=== PATIENT | male | born 1970 | race Caucasian/White ===

== ENCOUNTER 2017-06-25 09:50 | Outpatient (CLI) | payer OTHER ==
--- NOTE | 2017-06-25 12:58 | XRAY Report ---
DATE OF SERVICE: 06/25/2017 THREE VIEW RIGHT SHOULDER: 06/25/2017 CLINICAL INDICATION: Pain after fall. FINDINGS: AP, oblique, and scapular Y views of the right shoulder demonstrate no evidence of fracture or dislocation. The joint spaces are preserved. No radiopaque foreign body is seen in the soft tissues. IMPRESSION: NORMAL RIGHT SHOULDER. TD: 06/25/2017 13:57
== END 2017-06-25 09:51 | disposition home or self-care (01) ==
LOC: DI 09:50
PROVIDERS: ATTEND Family Medicine
DX: M25.511 Pain in right shoulder (principal)

== ENCOUNTER 2017-07-19 07:41 | Outpatient (CLI) | payer OTHER ==
--- NOTE | 2017-07-19 16:28 | MRI Preliminary Report ---
Exam: MRI SHOULDER RT W/O IMPRESSION: 1. Mild supraspinatus tendinopathy with shallow bursal surface fraying and subtle shallow partial-thi ckness intrasubstance tear at the central to posterior fibers. 2. Mild infraspinatus and subscapularis tendinopathy. 3. Degenerative fraying of the labrum with small partial-thickness undersurface tear posterior superi or aspect. 4. Mild subacromial subdeltoid bursitis. 5. Minimal acromioclavicular and glenohumeral degenerative change. 6. Mild anterior and lateral downsloping of the acromion. This may contribute to symptoms of impingem ent. [facility]CULOSKE[facility]IOLOGY SECTION SITE ID: [id number]
--- NOTE | 2017-07-19 19:31 | MRI Report ---
EXAM: RIGHT SHOULDER MRI WITHOUT CONTRAST EXAM DATE: 07/19/2017 08:36 AM. CLINICAL HISTORY: Right shoulder pain x 6 weeks. COMPARISON: Radiographs 06/25/2017. TECHNIQUE: Multiplanar, multisequence T1-weighted and fluid-sensitive sequences of the shoulder witho ut contrast. Other: None. FINDINGS: Acromioclavicular Region: The acromion is type II with mild anterior and lateral downsloping. Minimal degenerative change at the joint. The coracoacromial and coracoclavicular ligaments are intact. Mild subacromial/subdeltoid bursal fluid. Glenohumeral Region: No subluxation. Minimal joint effusion. Shallow partial-thickness cartilage loss at the humeral head. Deep partial-thickness loss at the central to inferior glenoid. The glenohumera l ligaments and joint capsule are unremarkable. Bone Marrow: No fracture or bone lesion. Reactive edema and cyst at the greater tuberosity. Labrum: Degenerative fraying and small partial-thickness undersurface tear at the posterior-superior labrum. Degenerative fraying at the anterior-inferior labrum. Musculature/Rotator Cuff: Mild supraspinatus tendinopathy with shallow bursal surface fraying. Subtle partial-thickness intrasubstance tear at the insertion of the central to posterior fibers. Subtle de laminating component extends to the myotendinous junction. Mild infraspinatus tendinopathy with shallow bursal surface fraying. Teres minor tendon is intact. Mild subscapularis tendinopathy. No edema or fatty atrophy. Biceps Tendon: The long head of the biceps tendon and biceps lucy are intact. Other: The subcutaneous tissues are unremarkable. IMPRESSION: 1. Mild supraspinatus tendinopathy with shallow bursal surface fraying and a subtle shallow partial-t hickness intrasubstance tear at the central to posterior fibers. 2. Mild infraspinatus and subscapularis tendinopathy. 3. Degenerative fraying of the labrum with a small partial-thickness undersurface tear at the posteri or-superior aspect. 4. Mild subacromial subdeltoid bursitis. 5. Minimal acromioclavicular and glenohumeral degenerative change. 6. Mild anterior and lateral downsloping of the acromion. This may contribute to symptoms of impingem ent. [facility]CULOSKE[facility] RADIOLOGY SECTION Referring Provider Line: [phone] SITE ID: [id number]
== END 2017-07-19 07:42 | disposition home or self-care (01) ==
LOC: DI 07:41
PROVIDERS: ATTEND Family Medicine
DX: M75.101 Unspecified rotator cuff tear or rupture of right shoulder, not specified as traumatic (principal); S43.491A Other sprain of right shoulder joint, initial encounter; M75.51 Bursitis of right shoulder; M19.011 Primary osteoarthritis, right shoulder; M75.91 Shoulder lesion, unspecified, right shoulder

== ENCOUNTER 2021-06-19 09:00 | Day surgery (SDC) | payer OTHER ==
[~2021-06-19 09:00] MED LIST: LACTATED RINGERS 1,000 ML IV ONE
--- NOTE | 2021-06-19 10:01 | ANESTHESIA ---
Pre-Anesthesia VS, & Labs - Diagnosis dysphagia, screening - Procedure EGD, Colonoscopy Vital Signs: Temp Pulse Resp BP Pulse Ox 36.2 C L 78 14 131/98 H 97 06/19/21 09:16 06/19/21 09:16 06/19/21 09:16 06/19/21 09:16 06/19/21 09:16 Height: 6 ft 1 in Weight (kg): 122.2 kg Body Mass Index: 35.5 BMI Classification: Obese - NPO >8 hours - Lab Results Lab results reviewed: Yes Home Medications and Allergies Home Medications: Ambulatory Orders Amlodipine Besylate [Norvasc] 5 mg PO DAILY 06/19/21 Atorvastatin [Lipitor] 20 mg PO DAILY 06/19/21 Lisinopril [Zestril] 40 mg PO DAILY 06/19/21 Rivaroxaban [Xarelto] 20 mg PO DAILY 06/19/21 Zolpidem Tartrate [Ambien] 10 mg PO DAILY 06/19/21 Amlodipine Besylate [Norvasc] 5 mg PO DAILY 06/19/21 Atorvastatin [Lipitor] 20 mg PO DAILY 06/19/21 Lisinopril [Zestril] 40 mg PO DAILY 06/19/21 Rivaroxaban [Xarelto] 20 mg PO DAILY 06/19/21 Zolpidem Tartrate [Ambien] 10 mg PO DAILY 06/19/21 Allergies/Adverse Reactions: Allergies Allergy/AdvReac Type Severity Reaction Status Date / Time No Known Drug Allergies Allergy Verified 06/19/21 09:31 Anes History & Medical History - Anesthetic History Anesthesia Complications: reports: No previous complications Family history of Anesthesia Complications: Denies Family history of Malignant Hyperthermia: Denies - Medical History Cardiovascular: reports: Hypertension, High cholesterol, Deep vein thrombosis, Pulmonary embolism Pulmonary: reports: None Gastrointestinal: reports: Hiatal hernia Urinary: reports: Kidney stones, Other Musculoskeletal: reports: Osteoarthritis Endocrine/Autoimmune: reports: None Skin: reports: Eczema - Surgical History Orthopedic: reports: Hip replacement, Other Exam General: Alert, Oriented x3, Cooperative, No acute distress Dental: WNL Mouth Openin Fingerbreadth Neck Mobility: Normal Mallampati classification: I Plan Anesthesia Type: General, Total IV Consent for Procedure(s) Verified and Reviewed: Yes Code Status: Attempt Resuscitation ASA classification: 2-Mild systemic disease Is this case an emergency?: No
[2021-06-19] MEDS ORDERED: LIDOCAINE-MPF 2% 5 ML VIAL ONE (10:29)
[2021-06-19] MEDS ORDERED: PROPOFOL 500 MG/50 ML 500 MG/50 ML VIAL ONE (10:31)
[2021-06-19] MEDS ORDERED: PROPOFOL 200 MG/20 ML VIAL IVP ONE (11:02)
[2021-06-19] MEDS ORDERED: LACTATED RINGERS 1,000 ML IV ONE (11:13)
[2021-06-19 11:32] VITALS: BP 122/87
--- NOTE | 2021-06-19 14:36 | ANESTHESIA POST OP EVALUATION ---
Anesthesia Post Eval - Post Anesthesia Eval Vitals: Last Vital Signs Temp 36.2 C L 06/19/21 11:29 Pulse 65 06/19/21 11:29 Resp 15 06/19/21 11:29 BP 122/87 H 06/19/21 11:29 Pulse Ox 98 06/19/21 11:29 CV Function Including HR & BP: Stable Pain Control: Satisfactory Nausea & Vomiting: Negative Mental Status: Baseline Respiratory Status: Airway Patent Hydration Status: Satisfactory Anesthesia Complications: None
== END 2021-06-19 09:01 | disposition home or self-care (01) ==
LOC: SDS 09:00
PROVIDERS: ATTEND Surgery
PROC: 0DB58ZX Excision of Esophagus, Via Natural or Artificial Opening Endoscopic, Diagnostic (ICD-10-PCS; 2021-06-19)
PROC: 0DB48ZX Excision of Esophagogastric Junction, Via Natural or Artificial Opening Endoscopic, Diagnostic (ICD-10-PCS; 2021-06-19)
PROC: 0DBN8ZX Excision of Sigmoid Colon, Via Natural or Artificial Opening Endoscopic, Diagnostic (ICD-10-PCS; 2021-06-19)
PROC: 0DB98ZX Excision of Duodenum, Via Natural or Artificial Opening Endoscopic, Diagnostic (ICD-10-PCS; principal; 2021-06-19 10:00)
PROC: 0DB68ZX Excision of Stomach, Via Natural or Artificial Opening Endoscopic, Diagnostic (ICD-10-PCS; 2021-06-19 10:00)
DX: Z12.11 Encounter for screening for malignant neoplasm of colon (principal); K21.9 Gastro-esophageal reflux disease without esophagitis; R13.10 Dysphagia, unspecified; K29.70 Gastritis, unspecified, without bleeding; K44.9 Diaphragmatic hernia without obstruction or gangrene; K57.30 Diverticulosis of large intestine without perforation or abscess without bleeding; K63.5 Polyp of colon; K64.4 Residual hemorrhoidal skin tags; K64.8 Other hemorrhoids; I10 Essential (primary) hypertension; E66.9 Obesity, unspecified; Z68.35 Body mass index [BMI] 35.0-35.9, adult; Z79.01 Long term (current) use of anticoagulants; Z79.899 Other long term (current) drug therapy; Z86.711 Personal history of pulmonary embolism; Z86.718 Personal history of other venous thrombosis and embolism; Z87.19 Personal history of other diseases of the digestive system
CPT/HCPCS: 43239; 45380; J7120

== ENCOUNTER 2023-05-05 13:00 | Outpatient (CLI) | payer OTHER ==
[2023-05-05 13:11] LABS: BASOPHILS % (AUTO) 0.6 %; EOSINOPHILS # (AUTO) 0.1 10^3/uL (0.0-0.7); EOSINOPHILS % (AUTO) 1.1 %; HCT - HEMATOCRIT 36.9 % (42.0-52.0); HGB - HEMOGLOBIN 10.8 g/dL (14.0-18.0); LYMPHOCYTES # (AUTO) 1.7 10^3/uL (1.5-3.5); LYMPHOCYTES % (AUTO) 36.2 %; MEAN CORPUSCULAR HEMOGLOBIN 24.8 pg (27.0-31.0); MEAN CORPUSCULAR HGB CONC 29.3 g/dL (32.0-36.0); MEAN CORPUSCULAR VOLUME 84.8 fL (80.0-94.0); MEAN PLATELET VOLUME 8.7 fL (7.4-11.4); MONOCYTES # (AUTO) 0.3 10^3/uL (0.0-1.0); MONOCYTES % (AUTO) 6.6 %; NEUTROPHILS # (AUTO) 2.6 10^3/uL (1.5-6.6); NEUTROPHILS % (AUTO) 55.5 %; PLT - PLATELET COUNT 264 10^3/uL (130-450); RED BLOOD COUNT 4.35 10^6/uL (4.70-6.10); RED CELL DISTRIBUTION WIDTH 17.4 % (12.0-15.0); WHITE BLOOD COUNT 4.7 x10^3/uL (4.8-10.8)
[2023-05-05 13:30] LABS: % IRON SATURATION 7 % (20-50); IRON 27 ug/dL (50-212); TOTAL IRON BINDING CAPACITY 375 ug/dL (250-450); TRANSFERRIN 268 mg/dL (203-362)
== END 2023-05-05 13:01 | disposition home or self-care (01) ==
LOC: LAB 13:00
PROVIDERS: ATTEND Surgery
DX: D50.9 Iron deficiency anemia, unspecified (principal)
CPT/HCPCS: 36415; 83540; 84466; 85025

== ENCOUNTER 2023-06-16 09:16 | Day surgery (SDC) | payer OTHER ==
[2023-06-16] MEDS ORDERED: LACTATED RINGERS 1,000 ML IV ONE (09:47)
[2023-06-16 09:51] VITALS: O2SAT 100
[2023-06-16] MEDS ORDERED: PROPOFOL 500 MG/50 ML 500 MG/50 ML VIAL ONE (10:45)
--- NOTE | 2023-06-16 10:45 | ANESTHESIA ---
Pre-Anesthesia VS, & Labs - Diagnosis anemia, screening - Procedure EGD, colonoscopy Vital Signs: Temp Pulse Resp BP Pulse Ox O2 Flow Rate 36.0 C L 65 14 143/100 H 100 06/16/23 09:40 06/16/23 09:40 06/16/23 09:40 06/16/23 09:40 06/16/23 09:40 Height: 6 ft 1 in Weight (kg): 121.7 kg Body Mass Index: 35.4 BMI Classification: Obese - NPO Other (prep as directed) Home Medications and Allergies Home Medications: Ambulatory Orders Metoprolol Succinate [Toprol Xl] 1 tab PO BID 06/13/23 Omeprazole Magnesium [Prilosec] 10 mg PO DAILY 06/13/23 Amlodipine Besylate [Norvasc] 5 mg PO BID 06/19/21 Atorvastatin [Lipitor] 20 mg PO DAILY 06/19/21 Lisinopril [Zestril] 40 mg PO DAILY 06/19/21 Rivaroxaban [Xarelto] 20 mg PO DAILY 06/19/21 Zolpidem Tartrate [Ambien] 10 mg PO DAILY PRN 06/19/21 Metoprolol Succinate [Toprol Xl] 1 tab PO BID 06/13/23 Omeprazole Magnesium [Prilosec] 10 mg PO DAILY 06/13/23 Allergies/Adverse Reactions: Allergies Allergy/AdvReac Type Severity Reaction Status Date / Time No Known Drug Allergies Allergy Verified 06/13/23 13:25 Anes History & Medical History - Anesthetic History Anesthesia Complications: reports: No previous complications - Medical History Cardiovascular: reports: Hypertension, High cholesterol, Pulmonary embolism, Atrial fibrillation Pulmonary: reports: Other Gastrointestinal: reports: GERD, Hiatal hernia, Hemorrhoids, Other Urinary: reports: Kidney stones, Other Musculoskeletal: reports: Chronic back pain, Other Endocrine/Autoimmune: reports: None Skin: reports: Psoriasis - Surgical History Orthopedic: reports: Hip replacement, Other Exam General: Alert, Oriented x3 Mouth Opening: Greater than 4 Fingerbreadths Neck Mobility: Normal Mallampati classification: I Thyromental Distance: greater than 6 cm Respiratory: Lungs clear Cardiovascular: Regular rate Plan Anesthesia Type: Total IV Consent for Procedure(s) Verified and Reviewed: Yes Code Status: Attempt Resuscitation ASA classification: 3-Severe systemic disease Is this case an emergency?: No
[2023-06-16] MEDS ORDERED: MIDAZOLAM 2 MG/2 ML VIAL ONE (11:12)
[2023-06-16] MEDS ORDERED: LACTATED RINGERS 700 ML IV ONE ×2 (11:56)
[2023-06-16 12:18] VITALS: BP 93/53
--- NOTE | 2023-06-16 12:31 | ANESTHESIA POST OP EVALUATION ---
Anesthesia Post Eval - Post Anesthesia Eval Vitals: Last Vital Signs Temp 36.1 C L 06/16/23 11:56 Pulse 59 L 06/16/23 12:05 Resp 16 06/16/23 12:05 BP 93/53 L 06/16/23 12:05 Pulse Ox 100 06/16/23 12:05 O2 Flow Rate CV Function Including HR & BP: Stable Pain Control: Satisfactory Nausea & Vomiting: Negative Mental Status: Baseline Respiratory Status: Airway Patent Hydration Status: Satisfactory Anesthesia Complications: None
== END 2023-06-16 09:17 | disposition home or self-care (01) ==
LOC: SDS 09:16
PROVIDERS: ATTEND Surgery
PROC: 0DBN8ZZ Excision of Sigmoid Colon, Via Natural or Artificial Opening Endoscopic (ICD-10-PCS; principal; 2023-06-16 10:30)
PROC: 0DJ08ZZ Inspection of Upper Intestinal Tract, Via Natural or Artificial Opening Endoscopic (ICD-10-PCS; 2023-06-16 10:30)
DX: D50.9 Iron deficiency anemia, unspecified (principal); R19.5 Other fecal abnormalities; D12.5 Benign neoplasm of sigmoid colon; K57.30 Diverticulosis of large intestine without perforation or abscess without bleeding; K64.2 Third degree hemorrhoids; K44.9 Diaphragmatic hernia without obstruction or gangrene; K21.9 Gastro-esophageal reflux disease without esophagitis; I10 Essential (primary) hypertension; I48.91 Unspecified atrial fibrillation; E66.9 Obesity, unspecified; Z68.35 Body mass index [BMI] 35.0-35.9, adult
CPT/HCPCS: 43235; 45385; J7120

== ENCOUNTER 2023-07-15 10:02 | Outpatient (CLI) | payer OTHER ==
--- NOTE | 2023-07-15 10:53 | Sleep Patient Instructions ---
Sleep Center Visit Summary - Patient Visit Information Reason for Visit: Initial consult for evaluation of sleep disordered breathing and other sleep issues. - Patient Instructions Instructions Attached: Sleep Study Additional Instructions: You will be completing a sleep study, either an in-lab polysomnography (PSG) or home sleep study (HST). You will follow-up in the sleep care office after the sleep study is completed to hear the results and talk about therapy, if needed. You will be called by our office staff to schedule this appointment, but you may contact us with any questions. - Clinic Information Contact: [facility] [address] [place] [address] [email or web address] T: [phone]
--- NOTE | 2023-07-15 11:00 | SLEEP CARE CONSULTATION ---
Information from patient questionnaire entered by Julieta Ahmadi. I have reviewed and concur with the information entered by Julieta Ahmadi. This document represents the service I personally performed and the decisions made by me, Nyasia Lino ARNP. History of Present Illness Service Date and Time: 07/15/2023 1002 Reason for Visit: New patient Chief Complaint: reports: Other (Atrial fibrillation/syncope) Date of Onset: 04/27/23 Usual bedtime: 11 PM Time it takes to fall asleep: 1-2 hours Snores at night: Yes Observed to quit breathing while asleep: No Sleeps alone due to snoring: No Number of times waking at night: 1-2 Reasons for waking at night: reports: Bathroom. denies: Choking, Gasping for air Toss, Turn, or Twitch while sleeping: No Recalls having dreams: Yes Usually gets out of bed at: 8-9 Feels refreshed in the morning: No Morning headache: No Sleepy or fatigued during the day: No (as long has he does not slow down) Ever fallen asleep while driving: No Takes day naps: No Dreams during day naps: No Prior sleep studies: No Additional HPI information: I had the pleasure of seeing KEREN RIBERA today regarding the possibility of him having a sleep disorder. His current complaint today is history of atrial fibrillation/syncope. 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 He says he was found to atrial fibrillation and passed out when being discharged but they felt it was a vasovagal syncope. He is getting an ablation for the AFib on July 28. He has to have a sleep study to re-qualify his flight status. He has been told that he snores but is not real loud according to his significant other. She has not seen him stop breathing in his sleep and he denies waking up gasping for air or feeling like he is choking. 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 He will use Ambien for 2 nights to reset his circadian rhythm when he needs a reset. He does not use it much else because he does not like the way it makes him feel and he knows it is addictive. 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 Patient is and lives in [place]. Have you smoked in the past 12 months: No Alcohol use: Yes Alcohol amount and frequency: Rarely Caffeine use: Yes Caffeine amount and frequency: 6 a day Family History Family history of sleep disordered breathing: No Allergies and Home Medications Known drug allergies: No Drug allergies reviewed: Yes Home medication list reviewed: Yes Allergy and home medication list: Allergies No Known Drug Allergies Allergy (Verified 07/10/23 16:57) Home Medications Medication Instructions Recorded Confirmed Last Taken Type Amlodipine Besylate [Norvasc] 5 mg PO BID 06/19/21 07/15/23 06/15/23 History Atorvastatin [Lipitor] 20 mg PO DAILY 06/19/21 07/15/23 06/15/23 History Lisinopril [Zestril] 40 mg PO DAILY 06/19/21 07/15/23 06/15/23 History Rivaroxaban [Xarelto] 20 mg PO DAILY 06/19/21 07/15/23 06/13/23 History Zolpidem Tartrate [Ambien] 10 mg PO DAILY PRN 06/19/21 07/15/23 06/05/21 History Metoprolol Succinate [Toprol Xl] 1 tab PO BID 06/13/23 07/15/23 06/15/23 History Omeprazole Magnesium [Prilosec] 10 mg PO DAILY 06/13/23 07/15/23 06/15/23 History Review of Systems Weight loss over past 5 years: 10 Cardiovascular: reports: high blood pressure, irregular heart rate or pulse Respiratory: reports: sputum production Gastrointestinal: reports: heartburn, difficulty swallowing Neurological: reports: fainting or unconsciousness Psychiatric: denies: anxiety, depression Ear/Nose/Throat: denies: tonsillectomy Endocrine: denies: thyroid disease Musculoskeletal: reports: neck pain, back pain Physical Exam Vital signs obtained and entered by: Nyasia Jones NP Blood Pressure: 130/90 Cuff size: long (right arm) Heart Rate: 74 O2 Saturation: 98 Height: 6 ft 1 in Weight: 208 lb 3.2 oz Body Mass Index: 27.4 BMI Classification: Overweight Neck circumference: 17.5 (inches) Mouth and throat: narrow oropharynx Soft palate: long Hard palate: arched Uvula: normal Uvula visualization: 25% Mallampati Class III Tongue: normal in size Tonsils: 1+ Neck: normal w/o lymphadenopathy or thyromegaly Heart: regular rate and rhythm Lungs: clear bilaterally Impression and Plan 1. Suspected Obstructive Sleep Apnea-Hypopnea Syndrome, as suggested by a history of loud and irregular snoring, unrefreshed sleep and diagnosed atrial fibrillation. Narrow oropharynx and obesity are common predisposing factors for obstructive sleep apnea-hypopnea syndrome. I recommend proceeding to polysomnography to confirm the diagnosis and to assess severity. If the patient has significant sleep disordered breathing, a manual CPAP titration study will also be performed to find the optimal treatment pressure. I informed the patient of what the sleep studies involve and after some discussion, obtained agreement to proceed. The pathophysiology of obstructive sleep apnea-hypopnea syndrome was discussed with the patient and health risks of cardiovascular and cerebrovascular disease if not treated. Risks of drowsy driving discussed in detail and patient advised to avoid long distance driving and to chute puller at the first sign of drowsiness. Patient agreed to plan. * Schedule polysomnography +- manual CPAP titration study and return in 1-2 weeks after the study to discuss result and initiate therapy. * Avoid long distance driving or driving when feeling sleepy. * Avoid alcohol, sedative and muscle relaxant around bedtime. * Attempt to lose weight. * Review instructions provided by trained office staff on how to prepare for the sleep study. * Return for follow-up after sleep study completed. Counseling Topics: Weight loss health impact Plan: PSG Visit Type: In Office Patient Location: Office Time Spent with Patient (minutes): 36 Provider Statement: I spent 100% of the Face to Face Visit with the patient with greater than 50% spent counseling the patient and coordination of care.
[2023-07-15 11:06] VITALS: BP 130/90; O2SAT 98
== END 2023-07-15 10:03 | disposition home or self-care (01) ==
LOC: SC 10:02
PROVIDERS: ATTEND Nurse Practitioner Family
DX: G47.8 Other sleep disorders (principal); R06.83 Snoring; I10 Essential (primary) hypertension; I48.91 Unspecified atrial fibrillation; R55 Syncope and collapse; Z86.718 Personal history of other venous thrombosis and embolism
CPT/HCPCS: 99203; 99212

== ENCOUNTER 2023-08-03 20:24 | Outpatient (CLI) | payer OTHER | END 2023-08-03 20:25 | disposition home or self-care (01) | LOC: SC 20:24 | PROVIDERS: ATTEND Nurse Practitioner Family | DX: G47.33 Obstructive sleep apnea (adult) (pediatric) (principal); I49.9 Cardiac arrhythmia, unspecified; I10 Essential (primary) hypertension | CPT/HCPCS: 95810 ==

== ENCOUNTER 2023-09-02 08:58 | Outpatient (CLI) | payer OTHER ==
--- NOTE | 2023-09-02 09:39 | Sleep Patient Instructions ---
Sleep Center Visit Summary - Patient Visit Information Reason for Visit: Sleep study follow-up - Patient Instructions Instructions Attached: CPAP Additional Instructions: You are being started on CPAP therapy with pressure setting at 4-15 cmH2O. You will need to call the sleep care office to set up your follow up once you have your CPAP machine to check compliance and response to therapy at that time. You may call the office with any concerns about pressure feeling too low or too much for adjustment, if needed. You should contact DME supplier for any questions or concerns about mask or equipment. Please call office to schedule a follow up appointment in the sleep care office one month after obtaining new device. - Clinic Information Contact: [facility] [address] [place] [address] [email or web address] T: [phone]
--- NOTE | 2023-09-02 09:42 | SLEEP CARE CONSULTATION ---
Information from patient questionnaire entered by Monica Castelan. I have reviewed and concur with the information entered by Monica Castelan. This document represents the service I personally performed and the decisions made by , Nyasia Lino ARNP. History of Present Illness Service Date and Time: 09/02/2023 0858 Initial [place] Sleepiness Scale score: 3 (in 2023) Current [place] Sleepiness Scale score: 3 (09/02/23) Additional HPI information: KEREN RIBERA returns for follow up and results of the recently performed polysomnography. The sleep study showed mild obstructive sleep apnea with an average AHI of 12.4 and marielos oxygen saturation of 84%. I explained the pathophysiology behind obstructive sleep apnea. We then spent quite a bit of time discussing different treatment options. For mild obstructive sleep apnea, surgery and oral appliance are alternatives to nasal CPAP therapy but in moderate or severe cases, nasal CPAP is the most effective and reliable treatment. I reviewed the impact of weight changes on sleep apnea and strongly recommended losing weight. After some discussion, the patient opted to go with the nasal CPAP therapy. Nasal autoCPAP set at 4-15 cmH20 will be ordered with rationale explained. A manual titration study will be ordered if unable to find optimal pressure with office adjustments. I explained how CPAP machine works and what to expect when using the machine. Using CPAP every night in order to get used to it was emphasized. Patient advised to put CPAP mask on before getting into bed so as not to fall asleep without CPAP. To assist acclimation to CPAP use, it could also be used for a short time during day while reading or watching TV. The patient was instructed to call the CPAP supplier to discuss any mechanical problem that may occur. If the mask given is uncomfortable or is difficult to keep on through the night even with adjustment, contact the CPAP supplier as many will replace with another mask style if notified before 30 days. If snoring or perceives is not getting enough air or too much air from the machine, notify this office. Patient counseled not drink alcohol less than 4 hours before bedtime as it can increase snoring and apnea. Patient was cautioned about risks of drowsy driving until sleepiness symptoms resolve. Patient denies drowsy driving. Sleep Study - Results Type of Sleep Study: Polysomnography (COMPLETED 08/03/23) Prior sleep studies: No Polysomnography/Home Sleep Study results: IMPRESSION: The quality of the study is good. The patient had reduced sleep efficiency due to prolonged awakening in the middle of the night. The sleep architecture was abnormal for sleep fragmentation and reduced amount of time spent in slow wave sleep (N3). Respiratory monitoring showed mild obstructive sleep apneahypopnea (AHI = 12.5) associated with frequent arousals, oxyhemoglobin desaturation and mild hypoxia (marielos oxygen saturation of 84%). The patient did not sleep supine during this study (supine AHI = 0.0; non-supine = 12.50). Snore was light to moderate in intensity. There was no significant periodic leg movement of sleep. Cardiac rhythm was normal sinus rhythm without significant arrhythmia. No abnormal behavior (parasomnia) observed during the night. Allergies and Home Medications Known drug allergies: No Drug allergies reviewed: Yes Home medication list reviewed: Yes (no changes) Allergy and home medication list: Allergies No Known Drug Allergies Allergy (Verified 08/29/23 12:29) Review of Systems Review of systems same as previous: Yes (catheter heart ablation for atrial fibrillation) Physical Exam Vital signs obtained and entered by: MONICA Garcia MA Blood Pressure: 128/95 (LEFT ARM) Cuff size: regular Heart Rate: 76 O2 Saturation: 98 Height: 6 ft 1 in Weight: 272 lb 9.6 oz Body Mass Index: 35.9 BMI Classification: Obese Impression and Plan 1. Obstructive Sleep Apnea-Hypopnea Syndrome, mild, with lowest oxygen saturation of 84%. Positive pressure therapy could benefit hypertension and arrhythmia (Afib). As mentioned above, the patient will be started on nasal autoCPAP therapy with pressure set at 4-15 cmH2O. A manual titration study will be completed if unable to find optimal treatment pressure with office adjustme nts. Compliance guidelines also reviewed. A copy of compliance guidelines will be given for reference at check out. 2. Hypoxemia, mild, with a marielos oxygen saturation of 84% and 9.3 minutes spent under 90%. The baseline oxygen saturation was normal with an average oxygen saturation of 91%. 3. Obesity, unspecified. Currently patients BMI is 35.9. Obesity increases the risk of apnea, CPAP pressure requirements and overall health risks especially cardiovascular and diabetes. Thus patient is advised to lose weight. * Nasal auto CPAP therapy, pressure at 4-15 cm H2O. * Attempt to lose weight. * Avoid alcohol consumption near bedtime. * Avoid supine sleep until using CPAP. * The patient is again cautioned about driving until sleepiness completely resolves. * Return one month after CPAP obtained. I will assess response to therapy and compliance at that time. Counseling Topics: Weight loss health impact Prescriptions: Auto CPAP Follow up with Sleep Care in: other (for compliance followup) Visit Type: In Office Time Spent with Patient (minutes): 20 Provider Statement: I spent 100% of the Face to Face Visit with the patient with greater than 50% spent counseling the patient and coordination of care.
[2023-09-02 09:49] VITALS: BP 128/95; O2SAT 98
== END 2023-09-02 08:59 | disposition home or self-care (01) ==
LOC: SC 08:58
PROVIDERS: ATTEND Nurse Practitioner Family
DX: G47.33 Obstructive sleep apnea (adult) (pediatric) (principal); R09.02 Hypoxemia; E66.9 Obesity, unspecified; Z68.35 Body mass index [BMI] 35.0-35.9, adult
CPT/HCPCS: 99212; 99213

== ENCOUNTER 2023-11-04 12:41 | Outpatient (CLI) | payer OTHER ==
--- NOTE | 2023-11-04 13:23 | Sleep Patient Instructions ---
Sleep Center Visit Summary - Patient Visit Information Reason for Visit: First compliance follow-up - Patient Instructions Additional Instructions: You were here for follow up of CPAP therapy. You will be continued on CPAP therapy with pressure at 5-10 cmH2O. Please let us know if the pressure change is uncomfortable and we can make further adjustments of the pressure. 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 You should follow up with sleep care in 1-2 months. You may contact us sooner for any questions or concerns. - Clinic Information Contact: [facility] [address] [place] [address] [email or web address] T: [phone]
--- NOTE | 2023-11-04 13:27 | SLEEP CARE CONSULTATION ---
Information from patient questionnaire entered by Monica Castelan. I have reviewed and concur with the information entered by Monica Castelan. This document represents the service I personally performed and the decisions made by , Nyasia Lino ARNP. History of Present Illness Service Date and Time: 11/04/2023 1241 Previous diagnosis: Mild, Obstructive Sleep Apnea-Hypopnea Syndrome AHI: 12.4 (on 08/03/23) Reason for follow up: first compliance Equipment type: CPAP (RESMED Airsense 11, S/U 09/16/23) Equipment obtained from: Other ([facility]; getting supplies) Mask style: Full face Mask brand: [email or web address] (and a ResMed F30 with his Airmini) Backup mask available: No (will keep old mask when replaced) Last cushion change: this week Prior sleep studies: No Type of Sleep Study: Polysomnography (COMPLETED 08/03/23) HPI additional information: KEREN RIBERA was diagnosed to have mild, AHI 12.4, obstructive sleep apnea- hypopnea syndrome and returned today for CPAP therapy first compliance follow- up. Sleep Study - Results Type of Sleep Study: Polysomnography (COMPLETED 08/03/23) Prior sleep studies: No CPAP Compliance Data - Data Reviewed with Patient Average duration of nightly device use: 7 HRS 46 MNS Compliance rate %: 83 (09/16/23-10/15/23; 25/30 days used) Current pressure setting (cmH2O): 4-15 (median 5.1, avg 8, max 9.7) Average residual AHI: 1.7 Central apnea: 0.1 Obstructive apnea: 0.6 Hypopnea: 0.9 Average large leak: 0.7 L/min Compliance data discussion: He is at 90% in last 30 days. He is also using an AirMini on nights he is traveling/camping, 2 days in last week. Subjective Missed days of use due to: reports: other (camping, using travel CPAP) Patient concerns: denies: aerophagia, mask discomfort, air blowing in eyes, mask leak noise, condensation in mask/hose, nasal congestion, dry mouth, nose, throat, epistaxis Observed to snore while using device: No Current pressure setting perceived as: comfortable On therapy, patient: reports: sleeping better, awakening more refreshed, being more awake and alert during the day, more rested overall. denies: drowsiness while driving Initial [place] Sleepiness Scale score: 3 (in 2023) Current [place] Sleepiness Scale score: 2 Allergies and Home Medications Known drug allergies: No Drug allergies reviewed: Yes Home medication list reviewed: Yes (no changes) Allergy and home medication list: Allergies No Known Drug Allergies Allergy (Verified 10/31/23 12:55) Review of Systems Review of systems same as previous: Yes (no changes) Physical Exam Vital signs obtained and entered by: NYASIA MAJOR-Jose Blood Pressure: 119/84 Cuff size: long (right arm) Heart Rate: 71 O2 Saturation: 96 Height: 6 ft 1 in Weight: 277 lb 9.6 oz Body Mass Index: 36.6 BMI Classification: Obese Impression and Plan 1. Obstructive Sleep Apnea-Hypopnea Syndrome, mild, with good treatment compliance and good apnea control. On CPAP therapy, the patient has better sleep quality and is more rested overall. He has significant improvement of his sleep apnea and is very compliant with using his machine. He has 90% use in the last 30 days. He has also purchased and is using travel CPAP for travel and vacations where he cannot take his regular CPAP. Patient also needs paperwork filled out for [employer] so that he can go back to work. His paperwork was completed and given back to patient. The patients pressure will be changed to autoCPAP 5-10 cmH20 to reflect pressure being used. Patient advised to contact me if pressure change is uncomfortable so that it can be adjusted. Goals for apnea control discussed. Patient's apnea severity and rationale for treatment to reduce apnea, improve sleep quality and reduce cardiovascular and cerebrovascular events was reviewed. I also reviewed the benefit of consistent device use of CPAP for hypertension, arrhythmia (Afib). 2. Obesity, unspecified. Currently patients BMI is 36.6. Obesity increases the risk of apnea, CPAP pressure requirements and overall health risks especially cardiovascular and diabetes. Thus patient is advised to lose weight. * Paperwork for [employer] completed and give to patient * Change auto CPAP pressure to 5-10 cmH2O * Notify me if snoring with mask or feeling that the pressure is too much or too little * Attempt to lose weight * Call this office if any problems using CPAP * Return for follow up in 1-2 months, or sooner if concerns arise Adjust device pressure to (cmH2O): 5-10 Counseling Topics: Spare mask, Weight loss health impact Follow up with Sleep Care in: 1-2 months Visit Type: In Office Time Spent with Patient (minutes): 25 Provider Statement: I spent 100% of the Face to Face Visit with the patient with greater than 50% spent counseling the patient and coordination of care.
[2023-11-04 13:36] VITALS: BP 119/84; O2SAT 96
== END 2023-11-04 12:42 | disposition home or self-care (01) ==
LOC: SC 12:41
PROVIDERS: ATTEND Nurse Practitioner Family
DX: G47.33 Obstructive sleep apnea (adult) (pediatric) (principal); E66.9 Obesity, unspecified; Z68.36 Body mass index [BMI] 36.0-36.9, adult
CPT/HCPCS: 99212; 99213

== ENCOUNTER 2023-12-31 08:24 | Outpatient (CLI) | payer OTHER ==
--- NOTE | 2023-12-31 08:50 | Sleep Patient Instructions ---
Sleep Center Visit Summary - Patient Visit Information Reason for Visit: Two month follow up for PAP therapy - Patient Instructions Additional Instructions: You were here for 2 month follow up of CPAP therapy. You will be continued on CPAP therapy with pressure at 5-10 cmH2O. You should follow up with sleep care in 3 months. You may contact us sooner for any questions or concerns. - Clinic Information Contact: [facility] [address] [place] [id number] [email or web address] T: [phone]
--- NOTE | 2023-12-31 08:55 | SLEEP CARE CONSULTATION ---
Information from patient questionnaire entered by Monica Castelan. I have reviewed and concur with the information entered by Monica Castelan. This document represents the service I personally performed and the decisions made by , Nyasia Lino ARNP. History of Present Illness Service Date and Time: 12/31/2023823 Previous diagnosis: Mild, Obstructive Sleep Apnea-Hypopnea Syndrome AHI: 12.4 (on 08/03/23) Reason for follow up: other (2 MONTH F/U) Equipment type: CPAP (RESMED Airsense 11, S/U 09/16/23) Equipment obtained from: Other ([facility]; getting supplies) Mask style: Full face Mask brand: [employer] ([place] Full) Backup mask available: Yes (with AirMini) Last cushion change: 2 months Prior sleep studies: No Type of Sleep Study: Polysomnography (COMPLETED 08/03/23) HPI additional information: KEREN RIBERA was diagnosed to have mild, AHI 12.4, obstructive sleep apnea- hypopnea syndrome and returned today for CPAP therapy two month follow-up. Sleep Study - Results Type of Sleep Study: Polysomnography (COMPLETED 08/03/23) Prior sleep studies: No CPAP Compliance Data - Data Reviewed with Patient Average duration of nightly device use: 7 HRS 27 MINS Compliance rate %: 83 (10/30/23-12/28/23; 50/60 days used) Current pressure setting (cmH2O): 5-10 Average residual AHI: 1.5 Central apnea: 0.1 Obstructive apnea: 0.5 Hypopnea: 0.9 Average large leak: 0.6 L/min Compliance data discussion: He uses his AirMini on days not using his Airsense 11. Subjective Missed days of use due to: reports: travel (using travel CPAP) Patient concerns: reports: mask leak noise (headgear is wearing out), dry mouth, nose, throat (dry mouth, not real bad). denies: aerophagia, mask discomfort, air blowing in eyes, condensation in mask/hose, nasal congestion, epistaxis Observed to snore while using device: No Current pressure setting perceived as: comfortable On therapy, patient: reports: sleeping better, awakening more refreshed, being more awake and alert during the day, more rested overall. denies: drowsiness while driving Initial [place] Sleepiness Scale score: 3 (in 2023) Current [place] Sleepiness Scale score: 1 (12/31/23) Allergies and Home Medications Known drug allergies: No Drug allergies reviewed: Yes Home medication list reviewed: Yes (Metformin) Allergy and home medication list: Allergies No Known Drug Allergies Allergy (Verified 12/31/23 08:25) Review of Systems Review of systems same as previous: No ([employer] FOR HEART, PRE DIABETIC) Physical Exam Vital signs obtained and entered by: MONICA Garcai MA Blood Pressure: 137/83 (LEFT ARM) Cuff size: long Heart Rate: 68 O2 Saturation: 98 Height: 6 ft 1 in Weight: 289 lb 6.4 oz Body Mass Index: 38.2 BMI Classification: Obese Impression and Plan 1. Obstructive Sleep Apnea-Hypopnea Syndrome, mild, with good treatment compliance and good apnea control. On CPAP therapy, the patient has better sleep quality and is more rested overall. He is using a travel CPAP when not using his regular machine. He has significant improvement of his sleep apnea and is comfortable with CPAP therapy. He has had a little oral dryness because of slight oral venting in mask but he says it is not a problem and resolves quickly in the morning. Patient advised that chronic oral dryness can affect dental health and to try oral moisturizers if it becomes more of an issue. He voiced understanding. Patient's apnea severity and rationale for treatment to reduce apnea, improve sleep quality and reduce cardiovascular and cerebrovascular events was reviewed. I also reviewed the benefit of consistent device use of CPAP for hypertension, arrhythmia. 2. Obesity, unspecified. Currently patients BMI is 38.2. Obesity increases the risk of apnea, CPAP pressure requirements and overall health risks especially cardiovascular and diabetes. Thus patient is advised to lose weight. * Continue auto CPAP pressure at 5-10 cmH2O * Notify me if snoring with mask or feeling that the pressure is too much or too little * Attempt to lose weight * Call this office if any problems using CPAP * Return for follow up in 3 months, or sooner if concerns arise Counseling Topics: Weight loss health impact Follow up with Sleep Care in: 3 months Visit Type: In Office Time Spent with Patient (minutes): 21 Provider Statement: I spent 100% of the Face to Face Visit with the patient with greater than 50% spent counseling the patient and coordination of care.
[2023-12-31 09:02] VITALS: BP 137/83; O2SAT 98
== END 2023-12-31 08:25 | disposition home or self-care (01) ==
LOC: SC 08:24
PROVIDERS: ATTEND Nurse Practitioner Family
DX: G47.33 Obstructive sleep apnea (adult) (pediatric) (principal); E66.9 Obesity, unspecified; Z68.38 Body mass index [BMI] 38.0-38.9, adult
CPT/HCPCS: 99212; 99213